=== PATIENT | female | born 1965 | race Caucasian/White ===

== ENCOUNTER 2016-08-27 15:16 | Inpatient (IN) | payer OTHER ==
[~2016-08-27] VITALS: Ht 157.5 cm; Wt 94.5 kg
[~2016-08-27 15:16] MED LIST: ADVAIR HFA120 INHALA IH; ALDACTONE25 MG PO; AMBIEN10 MG PO; ATARAX,VISTARIL25 MG PO; ATARAX,VISTARIL50 MG PO; ATROVENT H200 INHALA IH; Advair HFA 115/21 IH; Ambien PO; Atarax,Vistaril PO; BUSPAR15 MG PO; CHEWABLE MULTI1 EACH PO; CLONAZEPAM0.5 MG PO; CLONIDINE HCL0.1 MG PO; CYCLOBENZAPRINE5 MG PO; CYMBALTA60 MG PO; Ceftin PO; Cymbalta PO; DESYREL 150 MG150 MG PO; DESYREL100 MG PO; DUONEB 2.5-0.5 M3 ML IH; ENDOCET 5-3251 EACH PO; FANAPT4 MG PO; FLAGYL500 MG PO; FLEXERIL5 MG PO; FLOVENT DISKUS1 DIS1 IH; FOLIC ACID1 MG PO; FUROSEMIDE20 MG PO; Flexeril PO; GABAPENTIN600 MG PO; HYDROXYZINE HCL50 MG PO; Habitrol,Nicoderm CQ TD; KLONOPIN0.5 M1 PO; KRISTALOSE10 GM PO; Keflex PO; LASIX20 MG PO; LATUDA20 MG PO; LATUDA40 MG PO; LEVOFLOXACIN750 MG PO; LIBRIUM25 MG PO; LIDOCAINE700 MG TD; LIDODERM 5% P1 PATCH TD; LITHIUM CARBON150 MG PO; Levaquin PO; METOPROLOL TART25 MG PO; MOBIC7.5 MG PO; MORPHINE SULFAT15 M1 PO; MORPHINE SULFAT30 M2 PO; MS Contin,Oramorph S PO; MUCINEX COLD-F177 ML PO; NAPROSYN500 MG PO; NEURONTIN50 MG/ML PO; NEURONTIN600 MG PO; NICOTINE PATCH1 EAC1 TD; NO MEDS; Neurontin PO; OXYCODONE HCL10 MG PO; OXYCODONE HCL5 MG PO; PERCOCET 10/1 TABLET PO; PERCOCET 5/31 TABLET PO; PREDNISONE10 MG PO; PROVENTIL,2.5 MG/3 M IH; PROZAC10 MG PO; Percocet 5/325,Endoc PO; Proventil,Ventolin H IH; QUETIAPINE FUMA50 MG PO; RISPERDAL2 MG PO; ROXICODONE5 MG PO; SEROQUEL100 MG PO; SPIRIVA RESPIMAT4 GM IH; SPIRONOLACTONE25 MG PO; Singulair PO; THERAGRAN1 TABLET PO; THIAMINE,VITAM100 MG PO; TRAZODONE HCL100 MG PO; TRAZODONE HCL50 MG PO; Theo-Dur,Theocron PO; Thiamine,Vitamin B1 PO; VANCOMYCIN HCL125 MG PO; ZYPREXA20 MG PO; oxyCODONE PO; predniSONE PO
[2016-08-27 17:42] LABS: HEMATOCRIT 28.9 % (36.0-46.0); MCHC 36.3 G/DL (30.0-36.0); MCV 112.9 FL (83-99); MEAN PLAT.VOLUME 10.3 uM^3 (9.5-12.4); PLATELET COUNT 99 K/uL (156-360); RBC DIS.WIDTH-CV 18.8 % (11.8-14.6); RBC DIS.WIDTH-SD 74.5 % (39-53); RED BLOOD COUNT 2.56 M/uL (3.80-5.20); WHITE BLOOD COUNT 11.4 K/uL (4.1-10.2)
[2016-08-27 17:51] LABS: CHLORIDE 87 mEq/L (99-109); POTASSIUM 2.7 mEq/L (3.7-5.4); SODIUM 131 mEq/L (136-147)
[2016-08-27 17:52] LABS: INTER. NORMALIZED RATIO 1.8; PROTHROMBIN TIME 18.7 (9.2-11.2)
[2016-08-27 17:53] LABS: GLUCOSE 111 mg/dL (70-99)
[2016-08-27 17:54] LABS: ANION GAP 16 MEQ/L (2-14)
[2016-08-27 17:55] LABS: TOTAL BILIRUBIN 9.2 mg/dL (0.0-1.0)
[2016-08-27 17:56] LABS: ALKALINE PHOSPHATASE 137 IU/L (3-129)
[2016-08-27 17:57] LABS: GFR ESTIMATE (CALCULATED) > 59 mL/min/
[2016-08-27 17:58] LABS: UREA NITROGEN (BUN) 7 mg/dL (9-23)
[2016-08-27 18:00] LABS: LIPASE 69 U/L (1.0-51.0)
[2016-08-27 18:04] LABS: TROP-I INTERPRETATION NEGATIVE; TROPONIN-I < 0.01 ng/mL (0.0-0.30)
[2016-08-27 18:06] LABS: QUANTITATIVE HCG < 4.0 MIU/ML
[2016-08-27 21:02] VITALS: BP 105/68
[2016-08-27 23:36] VITALS: BP 105/68
[2016-08-28] VITALS (10 sets, daily range): BP systolic 91–114; BP diastolic 59–77
[2016-08-28 07:18] LABS: ALKALINE PHOSPHATASE 123 IU/L (3-129); ANION GAP 12 MEQ/L (2-14); CHLORIDE 89 MEQ/L (99-109); GFR ESTIMATE (CALCULATED) > 59 mL/min/; GLUCOSE 139 mg/dL (70-99); SAMPLE HEMOLYSIS CHECK 0; SAMPLE ICTERIC CHECK 2; SAMPLE LIPEMIA CHECK 0; SODIUM 131 MEQ/L (136-147); TOTAL BILIRUBIN 9.3 MG/DL (0.0-1.0); UREA NITROGEN (BUN) 11 mg/dL (9-23)
[2016-08-28 07:21] LABS: POTASSIUM 3.6 MEQ/L (3.7-5.4)
[2016-08-28 07:30] LABS: HEMATOCRIT 28.7 % (36.0-46.0); MCH 41.4 PG (29.0-34.0); MCHC 36.2 G/DL (30.0-36.0); MCV 114.3 FL (83-99); MEAN PLAT.VOLUME 10.7 uM^3 (9.5-12.4); PLATELET COUNT 100 K/uL (156-360); RBC DIS.WIDTH-CV 18.9 % (11.8-14.6); RBC DIS.WIDTH-SD 77.8 % (39-53); RED BLOOD COUNT 2.51 M/uL (3.80-5.20)
[2016-08-28 07:31] LABS: WHITE BLOOD COUNT 7.9 K/uL (4.1-10.2)
[2016-08-28 11:40] LABS: TYPE OF FLUID THORACENTESIS
[2016-08-28 12:25] LABS: BODY FLUID EOSINOPHILS 1 % (0-25); MONO RAW COUNT 77; MONONUCLEAR WBC'S 77 %; POLY RAW COUNT 22; POLYNUCLEAR WBC'S 22 % (0-25)
[2016-08-28 12:31] LABS: BODY FLUID RBC'S 156 /MM^3 (0-100); RED CELL AREA COUNTED 8; RED CELL DILUTION 1; WBC DILUTION 1; WHITE CELL RAW COUNT 67
[2016-08-28 12:32] LABS: BODY FLUID WBC'S 84 /MM^3 (0-500); WBC AREA COUNTED 8
[2016-08-28 13:02] LABS: BODY FLUID LDH 59 IU/L; BODY FLUID PROTEIN < 3.0 G/DL
[2016-08-28 16:23] LABS: BASE EXCESS 7.8 mEq/L (-3 to +3); BICARBONATE 30.8 mEq/L (22-26); CARBOXY HGB 3.8 % (0-5); METHEMOGLOBIN 1.6 % (0-1.5); PO2 59 mm Hg (80-100)
[2016-08-28 16:24] LABS: COMMENTS - BLOOD GASES A+C+; DEVICE HFNC; O2 FLOW 12 L/MIN; PCO2 36 mm Hg (35-45); SITE LR; TOTAL RESP RATE 20 resp/min; pH 7.54 (7.35-7.45)
[2016-08-28 20:08] LABS: D-DIMER ELISA > 4.00 mg/L FEU (< 0.57)
[2016-08-28 20:11] LABS: BASE EXCESS 7.2 mEq/L (-3 to +3); BICARBONATE 29.5 mEq/L (22-26); CARBOXY HGB 3.4 % (0-5); COMMENTS - BLOOD GASES C+A+; DEVICE NRBM; FI02 100 %; METHEMOGLOBIN 1.3 % (0-1.5); O2 FLOW 15 L/MIN; PCO2 33 mm Hg (35-45); PO2 62 mm Hg (80-100); SITE RB; TOTAL RESP RATE 30 resp/min; pH 7.56 (7.35-7.45)
[2016-08-28 20:12] LABS: ANION GAP 14 MEQ/L (2-14); CHLORIDE 88 MEQ/L (99-109); POTASSIUM 3.7 MEQ/L (3.7-5.4); SAMPLE HEMOLYSIS CHECK 0; SAMPLE ICTERIC CHECK 2; SAMPLE LIPEMIA CHECK 0; SODIUM 129 MEQ/L (136-147)
[2016-08-28 20:18] LABS: ALKALINE PHOSPHATASE 132 IU/L (3-129); GFR ESTIMATE (CALCULATED) 56 mL/min/; GLUCOSE 167 mg/dL (70-99); UREA NITROGEN (BUN) 18 mg/dL (9-23)
[2016-08-28 20:21] LABS: TROP-I INTERPRETATION NEGATIVE; TROPONIN-I 0.01 ng/mL (0.0-0.30)
[2016-08-28 20:35] LABS: HEMATOCRIT 31.4 % (36.0-46.0); MCH 41.8 PG (29.0-34.0); MCHC 36.3 G/DL (30.0-36.0); MEAN PLAT.VOLUME 11.1 uM^3 (9.5-12.4); PLATELET COUNT 106 K/uL (156-360); RBC DIS.WIDTH-CV 18.5 % (11.8-14.6); RBC DIS.WIDTH-SD 77.7 % (39-53); RED BLOOD COUNT 2.73 M/uL (3.80-5.20)
[2016-08-28 20:50] LABS: HEMATOLOGY COMMENT 1 REV
[2016-08-28 21:37] LABS: METH RESISTANT S AUREUS PCR NEGATIVE (NEGATIVE)
[2016-08-28 21:47] LABS: PROBE CHECK PASS; SPECIMEN PROCESSING CONTROL PASS
[2016-08-29] VITALS (23 sets, daily range): BP systolic 96–118; BP diastolic 53–75
[2016-08-29 05:36] LABS: HEMATOCRIT 30.9 % (36.0-46.0); MCH 39.9 PG (29.0-34.0); MCHC 34.6 G/DL (30.0-36.0); MCV 115.3 FL (83-99); MEAN PLAT.VOLUME 10.9 uM^3 (9.5-12.4); PLATELET COUNT 89 K/uL (156-360); RBC DIS.WIDTH-CV 18.7 % (11.8-14.6); RBC DIS.WIDTH-SD 78.2 % (39-53); RED BLOOD COUNT 2.68 M/uL (3.80-5.20); WHITE BLOOD COUNT 21.7 K/uL (4.1-10.2)
[2016-08-29 05:41] LABS: INTER. NORMALIZED RATIO 1.8; PROTHROMBIN TIME 18.8 (9.2-11.2)
[2016-08-29 05:57] LABS: ALKALINE PHOSPHATASE 111 IU/L (3-129); ANION GAP 10 MEQ/L (2-14); CHLORIDE 92 MEQ/L (99-109); GFR ESTIMATE (CALCULATED) 56 mL/min/; GLUCOSE 165 mg/dL (70-99); MAGNESIUM 1.3 mg/dl (1.3-2.7); POTASSIUM 3.4 MEQ/L (3.7-5.4); SAMPLE HEMOLYSIS CHECK 0; SAMPLE ICTERIC CHECK 2; SAMPLE LIPEMIA CHECK 0; SODIUM 132 MEQ/L (136-147); TOTAL BILIRUBIN 8.1 MG/DL (0.0-1.0); UREA NITROGEN (BUN) 19 mg/dL (9-23)
[2016-08-30] VITALS (23 sets, daily range): BP systolic 87–124; BP diastolic 36–93
[2016-08-30 06:08] LABS: INTER. NORMALIZED RATIO 1.7; PROTHROMBIN TIME 17.8 (9.2-11.2)
[2016-08-30 06:17] LABS: HEMATOCRIT 29.1 % (36.0-46.0); MCH 39.9 PG (29.0-34.0); MCV 117.3 FL (83-99); MEAN PLAT.VOLUME 10.9 uM^3 (9.5-12.4); PLATELET COUNT 83 K/uL (156-360); RBC DIS.WIDTH-CV 18.9 % (11.8-14.6); RED BLOOD COUNT 2.48 M/uL (3.80-5.20)
[2016-08-30 06:20] LABS: WHITE BLOOD COUNT 14.9 K/uL (4.1-10.2)
[2016-08-30 06:24] LABS: ALKALINE PHOSPHATASE 116 IU/L (3-129); ANION GAP 7 MEQ/L (2-14); CHLORIDE 97 MEQ/L (99-109); GFR ESTIMATE (CALCULATED) 56 mL/min/; GLUCOSE 166 mg/dL (70-99); POTASSIUM 3.6 MEQ/L (3.7-5.4); SAMPLE HEMOLYSIS CHECK 0; SAMPLE ICTERIC CHECK 2; SAMPLE LIPEMIA CHECK 0; SODIUM 135 MEQ/L (136-147); TOTAL BILIRUBIN 7.2 MG/DL (0.0-1.0); UREA NITROGEN (BUN) 22 mg/dL (9-23)
[2016-08-30 06:25] LABS: MAGNESIUM 2.7 mg/dl (1.3-2.7)
[2016-08-30 16:40] LABS: BASE EXCESS 6.2 mEq/L (-3 to +3); BICARBONATE 30.6 mEq/L (22-26); CARBOXY HGB 2.6 % (0-5); METHEMOGLOBIN 1.5 % (0-1.5); PO2 56 mm Hg (80-100)
[2016-08-30 16:41] LABS: COMMENTS - BLOOD GASES A+C+; DEVICE 840 PB MASK; FI02 75 %; MODE SPONT NIV; PCO2 43 mm Hg (35-45); PEEP 8 CM/H20; PRES. SUPPORT 8 CM/H2O; SITE RR; TOTAL RESP RATE 21 resp/min; pH 7.46 (7.35-7.45)
[2016-08-30 18:44] LABS: POINT-OF-CARE METER ID UU13113731
[2016-08-31] VITALS (24 sets, daily range): BP systolic 88–119; BP diastolic 50–82
[2016-08-31 00:15] LABS: POINT-OF-CARE METER ID UU14162636
[2016-08-31 06:16] LABS: HEMATOCRIT 30.8 % (36.0-46.0); MCH 41.5 PG (29.0-34.0); MCHC 34.7 G/DL (30.0-36.0); MCV 119.4 FL (83-99); MEAN PLAT.VOLUME 11.2 uM^3 (9.5-12.4); PLATELET COUNT 84 K/uL (156-360); RBC DIS.WIDTH-SD 81.8 % (39-53); RED BLOOD COUNT 2.58 M/uL (3.80-5.20); WHITE BLOOD COUNT 14.1 K/uL (4.1-10.2)
[2016-08-31 06:22] LABS: INTER. NORMALIZED RATIO 1.7; PROTHROMBIN TIME 17.8 (9.2-11.2)
[2016-08-31 06:56] LABS: ALKALINE PHOSPHATASE 106 IU/L (3-129); ANION GAP 12 MEQ/L (2-14); CHLORIDE 98 MEQ/L (99-109); GFR ESTIMATE (CALCULATED) 46 mL/min/; GLUCOSE 150 mg/dL (70-99); POTASSIUM 3.9 MEQ/L (3.7-5.4); SAMPLE HEMOLYSIS CHECK 2; SAMPLE ICTERIC CHECK 1; SAMPLE LIPEMIA CHECK 0; SODIUM 138 MEQ/L (136-147); TOTAL BILIRUBIN 6.8 MG/DL (0.0-1.0); UREA NITROGEN (BUN) 28 mg/dL (9-23)
[2016-08-31 06:59] LABS: MAGNESIUM 1.9 mg/dl (1.3-2.7)
[2016-08-31 12:21] LABS: POINT-OF-CARE METER ID UU13113748
[2016-08-31 18:13] LABS: POINT-OF-CARE METER ID UU14162636
[2016-09-01] VITALS (21 sets, daily range): BP systolic 84–111; BP diastolic 52–71
[2016-09-01 01:02] LABS: POINT-OF-CARE METER ID UU13113748
[2016-09-01 05:36] LABS: POINT-OF-CARE METER ID UU13113731
[2016-09-01 06:25] LABS: HEMATOCRIT 31.2 % (36.0-46.0); MCH 41.4 PG (29.0-34.0); MCHC 34.9 G/DL (30.0-36.0); MCV 118.6 FL (83-99); MEAN PLAT.VOLUME 11.4 uM^3 (9.5-12.4); PLATELET COUNT 73 K/uL (156-360); RBC DIS.WIDTH-CV 18.4 % (11.8-14.6); RBC DIS.WIDTH-SD 79.1 % (39-53); RED BLOOD COUNT 2.63 M/uL (3.80-5.20); WHITE BLOOD COUNT 10.2 K/uL (4.1-10.2)
[2016-09-01 06:32] LABS: INTER. NORMALIZED RATIO 1.9; PROTHROMBIN TIME 20.1 (9.2-11.2)
[2016-09-01 06:52] LABS: ALKALINE PHOSPHATASE 105 IU/L (3-129); ANION GAP 12 MEQ/L (2-14); CHLORIDE 101 MEQ/L (99-109); GFR ESTIMATE (CALCULATED) 46 mL/min/; GLUCOSE 176 mg/dL (70-99); MAGNESIUM 1.9 mg/dl (1.3-2.7); POTASSIUM 3.3 MEQ/L (3.7-5.4); SAMPLE HEMOLYSIS CHECK 0; SAMPLE ICTERIC CHECK 2; SAMPLE LIPEMIA CHECK 0; SODIUM 144 MEQ/L (136-147); TOTAL BILIRUBIN 7.1 MG/DL (0.0-1.0); UREA NITROGEN (BUN) 35 mg/dL (9-23)
[2016-09-01 09:46] LABS: BASE EXCESS 7.4 mEq/L (-3 to +3); BICARBONATE 31.2 mEq/L (22-26); CARBOXY HGB 3.5 % (0-5); METHEMOGLOBIN 1.5 % (0-1.5); PCO2 40 mm Hg (35-45); PO2 59 mm Hg (80-100)
[2016-09-01 11:24] LABS: COMMENTS - BLOOD GASES C+; CONTINUOUS POS AIRWAY PRESSURE 10 cm H2O; DEVICE MASK VENT; FI02 60 %; MODE SPONT; PRES. SUPPORT 10 CM/H2O; SITE RB; TOTAL RESP RATE 28 resp/min
[2016-09-01 18:39] LABS: POINT-OF-CARE METER ID UU14174217
[2016-09-02] VITALS (26 sets, daily range): BP systolic 66–141; BP diastolic 46–97
[2016-09-02 00:30] LABS: POINT-OF-CARE METER ID UU14174217
[2016-09-02 06:05] LABS: POINT-OF-CARE METER ID UU14174217
[2016-09-02 06:20] LABS: HEMATOCRIT 34.4 % (36.0-46.0); MCH 41.1 PG (29.0-34.0); MCHC 34.3 G/DL (30.0-36.0); MCV 119.9 FL (83-99); MEAN PLAT.VOLUME 11.3 uM^3 (9.5-12.4); PLATELET COUNT 67 K/uL (156-360); RBC DIS.WIDTH-CV 18.1 % (11.8-14.6); RBC DIS.WIDTH-SD 78.3 % (39-53); RED BLOOD COUNT 2.87 M/uL (3.80-5.20); WHITE BLOOD COUNT 11.1 K/uL (4.1-10.2)
[2016-09-02 06:41] LABS: ALKALINE PHOSPHATASE 96 IU/L (3-129); ANION GAP 11 MEQ/L (2-14); CHLORIDE 104 MEQ/L (99-109); GFR ESTIMATE (CALCULATED) 46 mL/min/; GLUCOSE 181 mg/dL (70-99); MAGNESIUM 1.9 mg/dl (1.3-2.7); POTASSIUM 3.7 MEQ/L (3.7-5.4); SAMPLE HEMOLYSIS CHECK 0; SAMPLE ICTERIC CHECK 1; SAMPLE LIPEMIA CHECK 0; SODIUM 147 MEQ/L (136-147); TOTAL BILIRUBIN 6.2 MG/DL (0.0-1.0); UREA NITROGEN (BUN) 41 mg/dL (9-23)
[2016-09-02 14:27] LABS: PCO2 61 mm Hg (35-45); PO2 68 mm Hg (80-100); pH 7.38 (7.35-7.45)
[2016-09-02 14:28] LABS: BASE EXCESS 8.8 mEq/L (-3 to +3); BICARBONATE 36.1 mEq/L (22-26); CARBOXY HGB 4.6 % (0-5); COMMENTS - BLOOD GASES A+C+; DEVICE VENT; FI02 80 %; METHEMOGLOBIN 1.3 % (0-1.5); MODE AC; O2 SATURATION (CALCULATED) 88.5 % (95-99); SITE RR
[2016-09-02 14:29] LABS: MECHANICAL RATE 12 resp/min; PEEP 5 CM/H20; TIDAL VOLUME 400 ML; TOTAL RESP RATE 12 resp/min
[2016-09-02 18:16] LABS: POINT-OF-CARE METER ID UU14174217
[2016-09-02 23:52] LABS: POINT-OF-CARE METER ID UU13113803
[2016-09-03] VITALS (23 sets, daily range): BP systolic 78–124; BP diastolic 42–69
[2016-09-03 05:45] LABS: POINT-OF-CARE METER ID UU14162636
[2016-09-03 05:57] LABS: BASE EXCESS 8.8 mEq/L (-3 to +3); BICARBONATE 34.5 mEq/L (22-26); CARBOXY HGB 3.1 % (0-5); METHEMOGLOBIN 1.5 % (0-1.5); pH 7.43 (7.35-7.45)
[2016-09-03 05:58] LABS: COMMENTS - BLOOD GASES C+; DEVICE VENT; FI02 100 %; MECHANICAL RATE 18 resp/min; MODE AC; PCO2 52 mm Hg (35-45); PEEP 5 CM/H20; PO2 94 mm Hg (80-100); SITE RB; TIDAL VOLUME 400 ML; TOTAL RESP RATE 18 resp/min
[2016-09-03 06:40] LABS: ALKALINE PHOSPHATASE 89 IU/L (3-129); ANION GAP 12 MEQ/L (2-14); CHLORIDE 106 MEQ/L (99-109); GFR ESTIMATE (CALCULATED) 46 mL/min/; GLUCOSE 159 mg/dL (70-99); MAGNESIUM 1.7 mg/dl (1.3-2.7); POTASSIUM 3.5 MEQ/L (3.7-5.4); SAMPLE HEMOLYSIS CHECK 0; SAMPLE ICTERIC CHECK 1; SAMPLE LIPEMIA CHECK 0; SODIUM 148 MEQ/L (136-147); TOTAL BILIRUBIN 6.1 MG/DL (0.0-1.0); UREA NITROGEN (BUN) 50 mg/dL (9-23)
[2016-09-03 07:45] LABS: HEMATOCRIT 33.4 % (36.0-46.0); MCH 40.5 PG (29.0-34.0); MCHC 33.2 G/DL (30.0-36.0); MCV 121.9 FL (83-99); MEAN PLAT.VOLUME 11.3 uM^3 (9.5-12.4); RBC DIS.WIDTH-CV 18.1 % (11.8-14.6); RBC DIS.WIDTH-SD 79.7 % (39-53); RED BLOOD COUNT 2.74 M/uL (3.80-5.20)
[2016-09-03 07:50] LABS: PLATELET COUNT 90 K/uL (156-360); WHITE BLOOD COUNT 14.9 K/uL (4.1-10.2)
[2016-09-03 12:11] LABS: POINT-OF-CARE METER ID UU13113748
[2016-09-03 17:45] LABS: POINT-OF-CARE METER ID UU13113748
[2016-09-04] VITALS (24 sets, daily range): BP systolic 85–114; BP diastolic 46–64
[2016-09-04 05:27] LABS: POINT-OF-CARE METER ID UU13113748
[2016-09-04 06:49] LABS: ALKALINE PHOSPHATASE 103 IU/L (3-129); ANION GAP 11 MEQ/L (2-14); CHLORIDE 110 MEQ/L (99-109); GFR ESTIMATE (CALCULATED) 50 mL/min/; GLUCOSE 182 mg/dL (70-99); HEMATOCRIT 34.5 % (36.0-46.0); MAGNESIUM 1.5 mg/dl (1.3-2.7); MCH 40.6 PG (29.0-34.0); MCHC 33.6 G/DL (30.0-36.0); MCV 120.6 FL (83-99); MEAN PLAT.VOLUME 11.4 uM^3 (9.5-12.4); POTASSIUM 3.6 MEQ/L (3.7-5.4); RBC DIS.WIDTH-CV 18.4 % (11.8-14.6); RBC DIS.WIDTH-SD 81.4 % (39-53); RED BLOOD COUNT 2.86 M/uL (3.80-5.20); SAMPLE HEMOLYSIS CHECK 0; SAMPLE ICTERIC CHECK 1; SAMPLE LIPEMIA CHECK 0; SODIUM 149 MEQ/L (136-147); TOTAL BILIRUBIN 5.4 MG/DL (0.0-1.0); UREA NITROGEN (BUN) 47 mg/dL (9-23)
[2016-09-04 07:09] LABS: PLATELET COUNT 127 K/uL (156-360); WHITE BLOOD COUNT 21.7 K/uL (4.1-10.2)
[2016-09-04 07:49] LABS: HEMATOLOGY COMMENT 1 REV
[2016-09-04 11:40] LABS: POINT-OF-CARE METER ID UU13113748
[2016-09-04 17:50] LABS: POINT-OF-CARE METER ID UU13113748
[2016-09-05] VITALS (23 sets, daily range): BP systolic 84–137; BP diastolic 50–73
[2016-09-05 00:16] LABS: POINT-OF-CARE METER ID UU14162636; POINT-OF-CARE USER ID PHATLC
[2016-09-05 02:00] LABS: HEMATOCRIT 32.8 % (36.0-46.0); MCH 41.3 PG (29.0-34.0); MCHC 33.2 G/DL (30.0-36.0); MCV 124.2 FL (83-99); MEAN PLAT.VOLUME 10.9 uM^3 (9.5-12.4); PLATELET COUNT 95 K/uL (156-360); RBC DIS.WIDTH-CV 18.4 % (11.8-14.6); RBC DIS.WIDTH-SD 80.6 % (39-53); RED BLOOD COUNT 2.64 M/uL (3.80-5.20); WHITE BLOOD COUNT 20.4 K/uL (4.1-10.2)
[2016-09-05 02:18] LABS: CHLORIDE 114 mEq/L (99-109); MAGNESIUM 1.7 mg/dL (1.3-2.7); POTASSIUM 3.8 mEq/L (3.7-5.4); SODIUM 150 mEq/L (136-147)
[2016-09-05 02:20] LABS: GLUCOSE 136 mg/dL (70-99)
[2016-09-05 02:21] LABS: ANION GAP 12 MEQ/L (2-14)
[2016-09-05 02:22] LABS: TOTAL BILIRUBIN 5.6 mg/dL (0.0-1.0)
[2016-09-05 02:24] LABS: ALKALINE PHOSPHATASE 107 IU/L (3-129); GFR ESTIMATE (CALCULATED) 56 mL/min/
[2016-09-05 02:25] LABS: UREA NITROGEN (BUN) 47 mg/dL (9-23)
[2016-09-05 05:36] LABS: POINT-OF-CARE METER ID UU14174217
[2016-09-05 12:00] LABS: POINT-OF-CARE METER ID UU14174217
[2016-09-05 13:01] LABS: ANION GAP 11 MEQ/L (2-14); CHLORIDE 113 MEQ/L (99-109); GFR ESTIMATE (CALCULATED) > 59 mL/min/; GLUCOSE 155 mg/dL (70-99); POTASSIUM 3.6 MEQ/L (3.7-5.4); SAMPLE HEMOLYSIS CHECK 0; SAMPLE ICTERIC CHECK 2; SAMPLE LIPEMIA CHECK 0; SODIUM 150 MEQ/L (136-147); UREA NITROGEN (BUN) 45 mg/dL (9-23)
[2016-09-05 18:33] LABS: POINT-OF-CARE METER ID UU14174217
[2016-09-06] VITALS (23 sets, daily range): BP systolic 93–116; BP diastolic 52–75
[2016-09-06 01:00] LABS: HEMATOCRIT 33.5 % (36.0-46.0); MCH 41.5 PG (29.0-34.0); MCHC 33.7 G/DL (30.0-36.0); MCV 123.2 FL (83-99); MEAN PLAT.VOLUME 10.8 uM^3 (9.5-12.4); PLATELET COUNT 86 K/uL (156-360); RBC DIS.WIDTH-CV 17.8 % (11.8-14.6); RBC DIS.WIDTH-SD 77.5 % (39-53); RED BLOOD COUNT 2.72 M/uL (3.80-5.20); WHITE BLOOD COUNT 21.5 K/uL (4.1-10.2)
[2016-09-06 01:05] LABS: CHLORIDE 114 mEq/L (99-109); POTASSIUM 3.4 mEq/L (3.7-5.4); SODIUM 150 mEq/L (136-147)
[2016-09-06 01:08] LABS: GLUCOSE 169 mg/dL (70-99)
[2016-09-06 01:09] LABS: ANION GAP 9 MEQ/L (2-14)
[2016-09-06 01:10] LABS: TOTAL BILIRUBIN 6.1 mg/dL (0.0-1.0)
[2016-09-06 01:11] LABS: ALKALINE PHOSPHATASE 116 IU/L (3-129)
[2016-09-06 01:12] LABS: GFR ESTIMATE (CALCULATED) 56 mL/min/
[2016-09-06 01:13] LABS: UREA NITROGEN (BUN) 44 mg/dL (9-23)
[2016-09-06 01:16] LABS: POINT-OF-CARE METER ID UU14174217
[2016-09-06 02:12] LABS: EOSINOPHIL (%) 0.7 % (0-5); EOSINOPHIL COUNT 0.2 K/uL (0-0.3); HEMATOLOGY COMMENT 1 REV; IMMATURE GRANULOCYTE (%) 1.4 % (0.0-0.7); LYMPHOCYTE COUNT 3.5 K/uL (1.0-2.8); MONOCYTE (%) 8.2 % (3-12); MONOCYTE COUNT 1.8 K/uL (0-0.8); NEUTROPHIL (%) 73.3 % (45-76); NEUTROPHIL COUNT 15.7 K/uL (1.8-6.4); USER ID SLU
[2016-09-06 06:43] LABS: POINT-OF-CARE METER ID UU14162636
[2016-09-06 12:09] LABS: POINT-OF-CARE METER ID UU13113731
[2016-09-06 13:41] LABS: TYPE OF FLUID PLEURAL
[2016-09-06 14:32] LABS: BODY FLUID RBC'S 197 /MM^3 (0-100); BODY FLUID WBC'S 36 /MM^3 (0-500); RED CELL AREA COUNTED 18; RED CELL DILUTION 1; WBC AREA COUNTED 18; WBC DILUTION 1; WHITE CELL RAW COUNT 65
[2016-09-06 14:50] LABS: BODY FLUID EOSINOPHILS 0 % (0-25); MONO RAW COUNT 78; MONONUCLEAR WBC'S 78 %; POLY RAW COUNT 22; POLYNUCLEAR WBC'S 22 % (0-25)
[2016-09-06 14:59] LABS: BODY FLUID LDH 112 IU/L; BODY FLUID PROTEIN < 3.0 G/DL
[2016-09-06 18:08] LABS: POINT-OF-CARE METER ID UU13113731
[2016-09-07] VITALS (24 sets, daily range): BP systolic 89–135; BP diastolic 58–87
[2016-09-07 00:56] LABS: POINT-OF-CARE METER ID UU14162636
[2016-09-07 05:12] LABS: MCH 41.2 PG (29.0-34.0); MCHC 33.5 G/DL (30.0-36.0); MCV 122.7 FL (83-99); MEAN PLAT.VOLUME 11.7 uM^3 (9.5-12.4); PLATELET COUNT 77 K/uL (156-360); RBC DIS.WIDTH-CV 16.9 % (11.8-14.6); RBC DIS.WIDTH-SD 75.1 % (39-53); RED BLOOD COUNT 2.77 M/uL (3.80-5.20); WHITE BLOOD COUNT 21.5 K/uL (4.1-10.2)
[2016-09-07 05:23] LABS: EOSINOPHIL (%) 1.6 % (0-5); EOSINOPHIL COUNT 0.4 K/uL (0-0.3); IMMATURE GRANULOCYTE (%) 0.7 % (0.0-0.7); IMMATURE GRANULOCYTE COUNT 0.1 K/uL; MONOCYTE (%) 5.9 % (3-12); MONOCYTE COUNT 1.3 K/uL (0-0.8); NEUTROPHIL (%) 77.7 % (45-76); NEUTROPHIL COUNT 16.7 K/uL (1.8-6.4)
[2016-09-07 05:28] LABS: INTER. NORMALIZED RATIO 1.7; PROTHROMBIN TIME 17.3 (9.2-11.2); PTT 33.4 (25-32)
[2016-09-07 05:36] LABS: ALKALINE PHOSPHATASE 104 IU/L (3-129); ANION GAP 10 MEQ/L (2-14); CHLORIDE 109 MEQ/L (99-109); GFR ESTIMATE (CALCULATED) > 59 mL/min/; GLUCOSE 177 mg/dL (70-99); MAGNESIUM 1.6 mg/dl (1.3-2.7); SAMPLE HEMOLYSIS CHECK 0; SAMPLE ICTERIC CHECK 1; SAMPLE LIPEMIA CHECK 0; SODIUM 143 MEQ/L (136-147); TOTAL BILIRUBIN 5.8 MG/DL (0.0-1.0); UREA NITROGEN (BUN) 33 mg/dL (9-23)
[2016-09-07 05:47] LABS: BASE EXCESS 1.6 mEq/L (-3 to +3); BICARBONATE 25.8 mEq/L (22-26); CARBOXY HGB 3.6 % (0-5); METHEMOGLOBIN 1.6 % (0-1.5); PCO2 38 mm Hg (35-45); PO2 62 mm Hg (80-100); SITE RR; pH 7.44 (7.35-7.45)
[2016-09-07 05:48] LABS: COMMENTS - BLOOD GASES C+A+; DEVICE VENTILATOR; FI02 45 %; MODE SPONT; PEEP 8 CM/H20; PRES. SUPPORT 12 CM/H2O; TOTAL RESP RATE 10 resp/min
[2016-09-07 11:17] LABS: INTERNAL CONTROL VALID? YES
[2016-09-07 12:22] LABS: POINT-OF-CARE METER ID UU14162636
[2016-09-07 16:41] LABS: C DIFF TOXIN NEGATIVE (NEGATIVE)
[2016-09-07 17:02] LABS: PROBE CHECK PASS; SPECIMEN PROCESSING CONTROL PASS
[2016-09-07 18:00] LABS: POINT-OF-CARE METER ID UU13113731
[2016-09-08] VITALS (19 sets, daily range): BP systolic 78–134; BP diastolic 43–76
[2016-09-08 01:19] LABS: POINT-OF-CARE METER ID UU14162636
[2016-09-08 04:48] LABS: BASE EXCESS 0.1 mEq/L (-3 to +3); BICARBONATE 23.3 mEq/L (22-26); CARBOXY HGB 3.6 % (0-5); METHEMOGLOBIN 1.9 % (0-1.5); PCO2 32 mm Hg (35-45); PO2 69 mm Hg (80-100); pH 7.47 (7.35-7.45)
[2016-09-08 04:49] LABS: COMMENTS - BLOOD GASES C+A+; DEVICE NIV; FI02 75 %; MODE SPONT; PEEP 10 CM/H20; PRES. SUPPORT 10 CM/H2O; SITE RB; TOTAL RESP RATE 22 resp/min
[2016-09-08 06:31] LABS: HEMATOCRIT 30.7 % (36.0-46.0); MCH 41.4 PG (29.0-34.0); MCHC 33.9 G/DL (30.0-36.0); MCV 122.3 FL (83-99); MEAN PLAT.VOLUME 11.9 uM^3 (9.5-12.4); PLATELET COUNT 88 K/uL (156-360); RBC DIS.WIDTH-CV 16.6 % (11.8-14.6); RBC DIS.WIDTH-SD 72.9 % (39-53); RED BLOOD COUNT 2.51 M/uL (3.80-5.20); WHITE BLOOD COUNT 23.6 K/uL (4.1-10.2)
[2016-09-08 06:45] LABS: POINT-OF-CARE METER ID UU13113731
[2016-09-08 06:56] LABS: ALKALINE PHOSPHATASE 99 IU/L (3-129); ANION GAP 10 MEQ/L (2-14); CHLORIDE 109 MEQ/L (99-109); EOSINOPHIL (%) 1.1 % (0-5); EOSINOPHIL COUNT 0.3 K/uL (0-0.3); GFR ESTIMATE (CALCULATED) 56 mL/min/; GLUCOSE 165 mg/dL (70-99); IMMATURE GRANULOCYTE (%) 0.8 % (0.0-0.7); IMMATURE GRANULOCYTE COUNT 0.2 K/uL; LYMPHOCYTE COUNT 2.9 K/uL (1.0-2.8); MONOCYTE (%) 6.7 % (3-12); MONOCYTE COUNT 1.6 K/uL (0-0.8); NEUTROPHIL (%) 79.1 % (45-76); NEUTROPHIL COUNT 18.6 K/uL (1.8-6.4); POTASSIUM 3.3 MEQ/L (3.7-5.4); SAMPLE HEMOLYSIS CHECK 0; SAMPLE ICTERIC CHECK 2; SAMPLE LIPEMIA CHECK 0; SODIUM 143 MEQ/L (136-147); TOTAL BILIRUBIN 6.4 MG/DL (0.0-1.0); UREA NITROGEN (BUN) 31 mg/dL (9-23)
[2016-09-08 06:57] LABS: MAGNESIUM 1.9 mg/dl (1.3-2.7)
[2016-09-08 12:26] LABS: POINT-OF-CARE METER ID UU14162636
[2016-09-08 18:12] LABS: POINT-OF-CARE METER ID UU14162636
[2016-09-09] VITALS (24 sets, daily range): BP systolic 80–156; BP diastolic 46–92
[2016-09-09 00:17] LABS: POINT-OF-CARE METER ID UU13113803
[2016-09-09 06:13] LABS: HEMATOCRIT 33.1 % (36.0-46.0); MCH 40.5 PG (29.0-34.0); MCHC 32.9 G/DL (30.0-36.0); PLATELET COUNT 92 K/uL (156-360); RBC DIS.WIDTH-CV 16.8 % (11.8-14.6); RBC DIS.WIDTH-SD 75.1 % (39-53); RED BLOOD COUNT 2.69 M/uL (3.80-5.20); WHITE BLOOD COUNT 27.1 K/uL (4.1-10.2)
[2016-09-09 06:20] LABS: POINT-OF-CARE METER ID UU13113748
[2016-09-09 06:25] LABS: INTER. NORMALIZED RATIO 1.9; PROTHROMBIN TIME 19.5 (9.2-11.2); PTT 36.5 (25-32)
[2016-09-09 06:35] LABS: ALKALINE PHOSPHATASE 93 IU/L (3-129); ANION GAP 11 MEQ/L (2-14); CHLORIDE 108 MEQ/L (99-109); GFR ESTIMATE (CALCULATED) 46 mL/min/; GLUCOSE 158 mg/dL (70-99); LIPASE 12 U/L (1.0-51.0); POTASSIUM 3.8 MEQ/L (3.7-5.4); SAMPLE HEMOLYSIS CHECK 1; SAMPLE ICTERIC CHECK 1; SAMPLE LIPEMIA CHECK 0; SODIUM 140 MEQ/L (136-147); TOTAL BILIRUBIN 5.8 MG/DL (0.0-1.0); UREA NITROGEN (BUN) 30 mg/dL (9-23)
[2016-09-09 07:21] LABS: EOSINOPHIL (%) 1.7 % (0-5); EOSINOPHIL COUNT 0.5 K/uL (0-0.3); IMMATURE GRANULOCYTE (%) 0.5 % (0.0-0.7); IMMATURE GRANULOCYTE COUNT 0.1 K/uL; LYMPHOCYTE COUNT 1.8 K/uL (1.0-2.8); MONOCYTE (%) 5.2 % (3-12); MONOCYTE COUNT 1.4 K/uL (0-0.8); NEUTROPHIL COUNT 23.2 K/uL (1.8-6.4)
[2016-09-09 08:07] LABS: HEMATOLOGY COMMENT 1 REV; USER ID NJR
[2016-09-09 12:13] LABS: POINT-OF-CARE METER ID UU13113748
[2016-09-09 17:48] LABS: POINT-OF-CARE METER ID UU13113748
[2016-09-10] VITALS (24 sets, daily range): BP systolic 91–143; BP diastolic 53–89
[2016-09-10 02:04] LABS: BODY FLUID PH 8.1 (())
[2016-09-10 05:21] LABS: BASE EXCESS -1.5 mEq/L (-3 to +3); BICARBONATE 22.4 mEq/L (22-26); CARBOXY HGB 2.3 % (0-5); COMMENTS - BLOOD GASES C+A+; DEVICE 840 VENT; FI02 55 %; MECHANICAL RATE 24 resp/min; METHEMOGLOBIN 1.7 % (0-1.5); MODE AC VC+; PCO2 33 mm Hg (35-45); PO2 126 mm Hg (80-100); SITE RR; TOTAL RESP RATE 25 resp/min; pH 7.44 (7.35-7.45)
[2016-09-10 05:22] LABS: PEEP 15 CM/H20; TIDAL VOLUME 400 ML
[2016-09-10 05:31] LABS: POINT-OF-CARE USER ID PHATLC
[2016-09-10 06:04] LABS: EOSINOPHIL (%) 0 % (0-5); IMMATURE GRANULOCYTE (%) 0.5 % (0.0-0.7); IMMATURE GRANULOCYTE COUNT 0.1 K/uL; LYMPHOCYTE COUNT 0.4 K/uL (1.0-2.8); MCH 40.2 PG (29.0-34.0); MCHC 34.1 G/DL (30.0-36.0); MCV 117.9 FL (83-99); MONOCYTE (%) 6.3 % (3-12); MONOCYTE COUNT 1.1 K/uL (0-0.8); NEUTROPHIL (%) 90.6 % (45-76); NEUTROPHIL COUNT 15.5 K/uL (1.8-6.4); PLATELET COUNT 78 K/uL (156-360); RBC DIS.WIDTH-CV 16.1 % (11.8-14.6); RBC DIS.WIDTH-SD 69.4 % (39-53); RED BLOOD COUNT 2.46 M/uL (3.80-5.20); WHITE BLOOD COUNT 17.1 K/uL (4.1-10.2)
[2016-09-10 06:22] LABS: ALKALINE PHOSPHATASE 122 IU/L (3-129); ANION GAP 9 MEQ/L (2-14); CHLORIDE 105 MEQ/L (99-109); GFR ESTIMATE (CALCULATED) 46 mL/min/; GLUCOSE 306 mg/dL (70-99); POTASSIUM 3.4 MEQ/L (3.7-5.4); SAMPLE HEMOLYSIS CHECK 0; SAMPLE ICTERIC CHECK 1; SAMPLE LIPEMIA CHECK 0; SODIUM 136 MEQ/L (136-147); TOTAL BILIRUBIN 4.7 MG/DL (0.0-1.0); UREA NITROGEN (BUN) 30 mg/dL (9-23)
[2016-09-10 07:19] LABS: INTER. NORMALIZED RATIO 1.9; PROTHROMBIN TIME 19.6 (9.2-11.2); PTT 40.7 (25-32)
[2016-09-10 13:47] LABS: POINT-OF-CARE METER ID UU13113748
[2016-09-10 21:28] LABS: POINT-OF-CARE METER ID UU13113803; POINT-OF-CARE USER ID PHATLC
[2016-09-11] VITALS (24 sets, daily range): BP systolic 82–131; BP diastolic 44–88
[2016-09-11 00:34] LABS: POINT-OF-CARE METER ID UU14162636
[2016-09-11 05:25] LABS: BASE EXCESS -1.2 mEq/L (-3 to +3); BICARBONATE 21.8 mEq/L (22-26); CARBOXY HGB 2.4 % (0-5); METHEMOGLOBIN 1.5 % (0-1.5); PCO2 30 mm Hg (35-45); pH 7.47 (7.35-7.45)
[2016-09-11 05:26] LABS: COMMENTS - BLOOD GASES C+A+; DEVICE 840 VENT; FI02 50 %; MECHANICAL RATE 24 resp/min; MODE AC VC+; PEEP 8 CM/H20; PO2 76 mm Hg (80-100); SITE LR; TIDAL VOLUME 400 ML; TOTAL RESP RATE 24 resp/min
[2016-09-11 06:03] LABS: HEMATOCRIT 29.9 % (36.0-46.0); MCH 40.2 PG (29.0-34.0); MCHC 34.4 G/DL (30.0-36.0); MCV 116.8 FL (83-99); MEAN PLAT.VOLUME 11.8 uM^3 (9.5-12.4); PLATELET COUNT 74 K/uL (156-360); RBC DIS.WIDTH-CV 15.9 % (11.8-14.6); RBC DIS.WIDTH-SD 66.7 % (39-53); RED BLOOD COUNT 2.56 M/uL (3.80-5.20); WHITE BLOOD COUNT 14.2 K/uL (4.1-10.2)
[2016-09-11 06:05] LABS: POINT-OF-CARE USER ID PHATLC
[2016-09-11 06:24] LABS: ALKALINE PHOSPHATASE 108 IU/L (3-129); ANION GAP 12 MEQ/L (2-14); CHLORIDE 108 MEQ/L (99-109); GFR ESTIMATE (CALCULATED) > 59 mL/min/; GLUCOSE 211 mg/dL (70-99); SAMPLE HEMOLYSIS CHECK 0; SAMPLE ICTERIC CHECK 1; SAMPLE LIPEMIA CHECK 0; SODIUM 138 MEQ/L (136-147); TOTAL BILIRUBIN 4.4 MG/DL (0.0-1.0); UREA NITROGEN (BUN) 31 mg/dL (9-23)
[2016-09-11 06:25] LABS: POTASSIUM 4.2 MEQ/L (3.7-5.4); VANCOMYCIN, TROUGH 12.3 MCG/ML (10-20)
[2016-09-11 06:26] LABS: EOSINOPHIL (%) 0 % (0-5); IMMATURE GRANULOCYTE (%) 0.4 % (0.0-0.7); IMMATURE GRANULOCYTE COUNT 0.1 K/uL; LYMPHOCYTE COUNT 0.7 K/uL (1.0-2.8); MONOCYTE (%) 7.5 % (3-12); MONOCYTE COUNT 1.1 K/uL (0-0.8); NEUTROPHIL (%) 87.1 % (45-76); NEUTROPHIL COUNT 12.4 K/uL (1.8-6.4)
[2016-09-11 11:18] LABS: POINT-OF-CARE METER ID UU13113731
[2016-09-12] VITALS (23 sets, daily range): BP systolic 94–130; BP diastolic 52–77
[2016-09-12 00:21] LABS: POINT-OF-CARE METER ID UU14174217; POINT-OF-CARE USER ID PHATLC
[2016-09-12 06:54] LABS: POINT-OF-CARE METER ID UU13113731; POINT-OF-CARE USER ID PHATLC
[2016-09-12 12:03] LABS: POINT-OF-CARE METER ID UU13113731
[2016-09-12 13:52] LABS: EOSINOPHIL (%) 0 % (0-5); HEMATOCRIT 27.9 % (36.0-46.0); IMMATURE GRANULOCYTE (%) 0.5 % (0.0-0.7); LYMPHOCYTE COUNT 0.7 K/uL (1.0-2.8); MCH 40.2 PG (29.0-34.0); MCHC 33.7 G/DL (30.0-36.0); MCV 119.2 FL (83-99); MEAN PLAT.VOLUME 12.2 uM^3 (9.5-12.4); MONOCYTE (%) 5.9 % (3-12); MONOCYTE COUNT 0.5 K/uL (0-0.8); NEUTROPHIL (%) 85.6 % (45-76); NEUTROPHIL COUNT 7.6 K/uL (1.8-6.4); PLATELET COUNT 73 K/uL (156-360); RBC DIS.WIDTH-SD 69.6 % (39-53); RED BLOOD COUNT 2.34 M/uL (3.80-5.20); WHITE BLOOD COUNT 8.9 K/uL (4.1-10.2)
[2016-09-12 14:08] LABS: ANION GAP 10 MEQ/L (2-14); CHLORIDE 109 MEQ/L (99-109); GFR ESTIMATE (CALCULATED) > 59 mL/min/; GLUCOSE 297 mg/dL (70-99); POTASSIUM 3.5 MEQ/L (3.7-5.4); SAMPLE HEMOLYSIS CHECK 0; SAMPLE ICTERIC CHECK 1; SAMPLE LIPEMIA CHECK 0; SODIUM 140 MEQ/L (136-147); UREA NITROGEN (BUN) 33 mg/dL (9-23)
[2016-09-12 18:05] LABS: POINT-OF-CARE METER ID UU14174217
== END 2016-09-12 20:51 | disposition short-term general hospital (02) | DRG 207 ==
LOC: EME 15:16 → 5SOUTH 19:30 → 4WEST 19:30 → EDOF 19:30 → 5SOUTH 20:46 → 4WEST 08-28 19:54
PROVIDERS: Emergency Medicine; Internal Medicine; Internal Medicine Critical Care Medicine; Internal Medicine Pulmonary Disease; Nurse Practitioner Adult Health; Obstetrics & Gynecology; Surgery
DX: J44.0 Chronic obstructive pulmonary disease with (acute) lower respiratory infection (principal); J18.9 Pneumonia, unspecified organism; J96.21 Acute and chronic respiratory failure with hypoxia; J90 Pleural effusion, not elsewhere classified; K76.6 Portal hypertension; E87.1 Hypo-osmolality and hyponatremia; D68.4 Acquired coagulation factor deficiency; F10.239 Alcohol dependence with withdrawal, unspecified; G93.41 Metabolic encephalopathy; K81.0 Acute cholecystitis; E87.0 Hyperosmolality and hypernatremia; E44.0 Moderate protein-calorie malnutrition; J44.1 Chronic obstructive pulmonary disease with (acute) exacerbation; R19.7 Diarrhea, unspecified; E87.6 Hypokalemia; E83.42 Hypomagnesemia; K70.31 Alcoholic cirrhosis of liver with ascites; D69.6 Thrombocytopenia, unspecified; F31.9 Bipolar disorder, unspecified; E03.9 Hypothyroidism, unspecified; B18.2 Chronic viral hepatitis C; Y95 Nosocomial condition; E66.9 Obesity, unspecified; F17.210 Nicotine dependence, cigarettes, uncomplicated; Z99.81 Dependence on supplemental oxygen; Z68.31 Body mass index [BMI] 31.0-31.9, adult
CPT/HCPCS: 36600; 49405; 71010; 71250; 74000; 74176; 74177; 76705; 80048; 80048 91; 80053; 80202; 81003; 82140; 82330; 82607; 82746; 82803; 82945; 82948; 83605; 83615 91; 83630; 83690; 83735; 83880; 83986 90; 84100; 84157; 84443; 84484; 84702; 85025; 85027; 85379; 85610; 85730; 87040; 87070; 87075; 87106; 87177; 87205; 87493; 87641; 88108; 89051; 93005; 93306; 94002; 94003; 94010; 94640; 94640 76; 94667; 94760; 94799; 99202; 99281; 99285; C1769; C9113; J0330; J1100; J1450; J1630; J1644; J1815; J1940; J1956; J2060; J2185; J2250; J2370; J2543; J2704; J2765; J2920; J2930; J3010; J3370; J3411; J3475; J3480; J3486; J7030; J7040; J7050; J7070; J7120; J7644; P9045; P9047; S0028